=== PATIENT | female | born 2000 | race Two or more races ===

== ENCOUNTER 2019-01-23 19:26 | Emergency (ER) | payer OTHER ==
[~2019-01-23] VITALS: Ht 162.6 cm; Wt 64.9 kg
== END 2019-01-23 20:40 | disposition home or self-care (01) ==
LOC: ER 19:26
DX: L02.32 Furuncle of buttock (principal)

== ENCOUNTER → 2019-04-02 | Emergency (ER) | payer OTHER ==
[~2019-04-02] VITALS: Ht 165.1 cm; Wt 64.9 kg
[~2019-04-02] MED LIST: CEFUROXIME500 MG PO; URIN D.S. TABL1 EACH PO
== END | disposition home or self-care (01) ==
LOC: ER 20:34
DX: N39.0 Urinary tract infection, site not specified (principal); R30.0 Dysuria

== ENCOUNTER 2019-06-17 21:11 | Inpatient (IN) | payer OTHER ==
[~2019-06-17] VITALS: Ht 167.6 cm; Wt 64.9 kg
--- NOTE | 2019-06-17 21:25 | NUR ---
PACIENTE REFIERE FIEBRE PORSHA DESDE EL YARITZA, TOS SEC, ESCALOFRIOS Y DOLOR EN EL CUERPO.
--- NOTE | 2019-06-17 23:34 | NUR ---
EVALUA PTE. SE ORIENTA A PTE SOBRE TX MEDICO. PTE REFIERE COMPRENDER. SE REALIZAN MUESTRAS DE LABORATORIO BAJO MEDIDAS ASEPTICAS. SE ADMINISTRAN MEDICAMENTOS GIDEON ORDEN MEDICA. PROCEDIMIENTOS LLEVADOS A CABO POR
--- NOTE | 2019-06-18 07:00 | NUR ---
SE RECIBE PACIENTE ALERTA Y ORIENTADA POR OMNAE ESFERAS EN COMPANIA DE FAMILIAR. SE OBSERVA IVF'S PATENTE SOBEIDA DE EDEMA Y ENROJEICMIENTO BAJANDO UN .9NSS @ 150ML/HR. PENDIENTE CONSULTA CON DR. Holland HONG. SE MANTIENE BAJO OBSERVACION POR CAMBIOS.
--- NOTE | 2019-06-18 07:45 | NUR ---
SE NOTIFICA A DR. ARDON PACIENTE CON VOMITOS. MS. BUSTOS AMDINISTRA PHENERGAN 50MG IM EN GLUTEO RT.
== END 2019-06-25 12:43 | disposition home or self-care (01) | DRG 689 ==
LOC: ER 21:11 → MEDJ 06-18 11:53
PROVIDERS: ADMIT Specialist
PROC: BT43ZZZ Ultrasonography of Bilateral Kidneys (ICD-10-PCS; 2019-06-18)
PROC: BW21Y0Z Computerized Tomography (CT Scan) of Abdomen and Pelvis using Other Contrast, Unenhanced and Enhanced (ICD-10-PCS; principal; 2019-06-20)
PROC: BU46ZZZ Ultrasonography of Uterus (ICD-10-PCS; 2019-06-20)
DX: N10 Acute pyelonephritis (principal); R65.11 Systemic inflammatory response syndrome (SIRS) of non-infectious origin with acute organ dysfunction; B37.41 Candidal cystitis and urethritis; R31.29 Other microscopic hematuria